=== PATIENT | male | born 1955 | race Caucasian/White ===

== ENCOUNTER 2017-10-08 17:51 | Inpatient (IN) | payer OTHER ==
[~2017-10-08] VITALS: Ht 180.3 cm; Wt 96.5 kg
[2017-10-08 18:09] LABS: BASOPHIL (%) 0.4 % (0-1); BASOPHIL COUNT 0.1 K/uL (0-0.1); EOSINOPHIL (%) 0.2 % (0-5); HEMATOCRIT 45.8 % (38.0-50.0); HEMOGLOBIN 15.9 G/DL (12.5-16.6); IMMATURE GRANULOCYTE (%) 0.3 % (0.0-0.7); LYMPHOCYTE (%) 10.6 % (15-42); LYMPHOCYTE COUNT 1.5 K/uL (1.0-2.8); MCH 29.4 PG (29.0-34.0); MCHC 34.7 G/DL (30.0-36.0); MCV 84.7 FL (86-99); MONOCYTE (%) 4.7 % (3-12); MONOCYTE COUNT 0.7 K/uL (0-0.8); NEUTROPHIL (%) 83.8 % (45-76); NEUTROPHIL COUNT 11.5 K/uL (1.8-6.4); PLATELET COUNT 294 K/uL (156-360); RBC DIS.WIDTH-CV 12.3 % (11.8-14.6); RBC DIS.WIDTH-SD 37.4 % (39-53); RED BLOOD COUNT 5.41 M/uL (4.00-5.50); WHITE BLOOD COUNT 13.8 K/uL (4.1-10.2)
[2017-10-08 18:17] LABS: PTT 26.5 SEC (25-37)
[2017-10-08 18:20] LABS: AMYLASE 31 IU/L (1-118); CHLORIDE 105 mEq/L (99-109); POTASSIUM 5.4 mEq/L (3.7-5.4); SODIUM 139 mEq/L (136-147)
[2017-10-08 18:22] LABS: GLUCOSE 175 mg/dL (70-99)
[2017-10-08 18:25] LABS: SERUM ETHYL ALCOHOL < 10 mg/dL
[2017-10-08 18:26] LABS: CREATININE 1.1 mg/dL (0.6-1.3); GFR ESTIMATE (CALCULATED) > 59 mL/min/ (58.99-99999)
[2017-10-08 18:27] LABS: UREA NITROGEN (BUN) 17 mg/dL (9-23)
[2017-10-08 18:29] LABS: LIPASE 23 U/L (1.0-51.0)
[2017-10-08 18:35] LABS: TROP-I INTERPRETATION POSITIVE
[2017-10-08 18:36] LABS: TROPONIN-I 1.99 ng/mL (0.0-0.30)
[2017-10-08 22:32] VITALS: BP 127/72
[2017-10-09] VITALS (14 sets, daily range): BP systolic 88–140; BP diastolic 68–98
[2017-10-09 02:31] LABS: TROP-I INTERPRETATION POSITIVE
[2017-10-09 02:32] LABS: TROPONIN-I 42.15 ng/mL (0.0-0.30)
[2017-10-09 08:33] LABS: ALBUMIN 3.9 G/DL (3.2-4.8); ALKALINE PHOSPHATASE 31 IU/L (3-129); ALT (GPT) 82 IU/L (3-49); AST (GOT) 496 IU/L (2-34); CHLORIDE 100 MEQ/L (99-109); CREATININE 0.9 MG/DL (0.6-1.3); GFR ESTIMATE (CALCULATED) > 59 mL/min/ (58.99-99999); GLUCOSE 158 mg/dL (70-99); HDL CHOLESTEROL 43 MG/DL (Desirable>=40); LDL CHOLESTEROL 184 mg/dL (Desirable<100); MAGNESIUM 1.7 mg/dl (1.3-2.7); NON-HDL CHOLESTEROL 201 mg/dL (Desirable<160); SODIUM 136 MEQ/L (136-147); TOTAL BILIRUBIN 1.7 MG/DL (0.0-1.0); TOTAL CHOLESTEROL 244 mg/dL (Desirable<200); TOTAL PROTEIN 6.7 G/DL (6.4-8.3); TRIGLYCERIDES 83 MG/DL (Normal: <150); UREA NITROGEN (BUN) 15 mg/dL (9-23)
[2017-10-09 08:37] LABS: BASOPHIL (%) 0.1 % (0-1); EOSINOPHIL (%) 0 % (0-5); HEMATOCRIT 46.8 % (38.0-50.0); HEMOGLOBIN 16.1 G/DL (12.5-16.6); IMMATURE GRANULOCYTE (%) 0.5 % (0.0-0.7); LYMPHOCYTE (%) 5.9 % (15-42); LYMPHOCYTE COUNT 1.1 K/uL (1.0-2.8); MCHC 34.4 G/DL (30.0-36.0); MCV 84.3 FL (86-99); MONOCYTE (%) 6.5 % (3-12); MONOCYTE COUNT 1.2 K/uL (0-0.8); NEUTROPHIL COUNT 16.1 K/uL (1.8-6.4); PLATELET COUNT 281 K/uL (156-360); RBC DIS.WIDTH-CV 12.5 % (11.8-14.6); RBC DIS.WIDTH-SD 38.1 % (39-53); RED BLOOD COUNT 5.55 M/uL (4.00-5.50); WHITE BLOOD COUNT 18.5 K/uL (4.1-10.2)
[2017-10-09 08:45] LABS: TROP-I INTERPRETATION POSITIVE
[2017-10-09 16:08] LABS: TROP-I INTERPRETATION POSITIVE; TROPONIN-I 141.78 ng/mL (0.0-0.30)
[2017-10-10 03:36] VITALS: BP 107/65
[2017-10-10 05:48] LABS: HEMATOCRIT 42.4 % (38.0-50.0); HEMOGLOBIN 14.6 G/DL (12.5-16.6); MCH 29.2 PG (29.0-34.0); MCHC 34.4 G/DL (30.0-36.0); MCV 84.8 FL (86-99); PLATELET COUNT 208 K/uL (156-360); RBC DIS.WIDTH-CV 12.7 % (11.8-14.6); WHITE BLOOD COUNT 14.2 K/uL (4.1-10.2)
[2017-10-10 06:22] LABS: ALBUMIN 3.5 G/DL (3.2-4.8); ALKALINE PHOSPHATASE 31 IU/L (3-129); ALT (GPT) 59 IU/L (3-49); AST (GOT) 225 IU/L (2-34); CHLORIDE 100 MEQ/L (99-109); CREATININE 0.9 MG/DL (0.6-1.3); GFR ESTIMATE (CALCULATED) > 59 mL/min/ (58.99-99999); GLUCOSE 124 mg/dL (70-99); POTASSIUM 3.8 MEQ/L (3.7-5.4); SODIUM 135 MEQ/L (136-147); TOTAL BILIRUBIN 2.2 MG/DL (0.0-1.0); TOTAL PROTEIN 5.9 G/DL (6.4-8.3); UREA NITROGEN (BUN) 14 mg/dL (9-23)
[2017-10-10 07:45] VITALS: BP 101/66
[2017-10-10 09:24] LABS: HEMOGLOBIN A1c (GLYCOHEMOGLOB) 5.8 % (Below 5.7)
[2017-10-10 12:53] VITALS: BP 105/63
[2017-10-10 15:25] VITALS: BP 99/55
[2017-10-10 19:47] VITALS: BP 106/73
[2017-10-10 23:48] VITALS: BP 102/69
[2017-10-11 04:24] VITALS: BP 103/70
[2017-10-11 05:35] LABS: BASOPHIL (%) 0.2 % (0-1); EOSINOPHIL (%) 0.2 % (0-5); HEMATOCRIT 39.4 % (38.0-50.0); HEMOGLOBIN 13.6 G/DL (12.5-16.6); IMMATURE GRANULOCYTE (%) 0.3 % (0.0-0.7); LYMPHOCYTE (%) 15.2 % (15-42); LYMPHOCYTE COUNT 1.6 K/uL (1.0-2.8); MCH 29.8 PG (29.0-34.0); MCHC 34.5 G/DL (30.0-36.0); MCV 86.2 FL (86-99); MONOCYTE (%) 11.8 % (3-12); MONOCYTE COUNT 1.3 K/uL (0-0.8); NEUTROPHIL (%) 72.3 % (45-76); NEUTROPHIL COUNT 7.7 K/uL (1.8-6.4); PLATELET COUNT 169 K/uL (156-360); RBC DIS.WIDTH-CV 12.6 % (11.8-14.6); RBC DIS.WIDTH-SD 39.2 % (39-53); RED BLOOD COUNT 4.57 M/uL (4.00-5.50); WHITE BLOOD COUNT 10.7 K/uL (4.1-10.2)
[2017-10-11 09:04] VITALS: BP 114/67
[2017-10-11 12:59] LABS: CHLORIDE 98 MEQ/L (99-109); CREATININE 0.9 MG/DL (0.6-1.3); GFR ESTIMATE (CALCULATED) > 59 mL/min/ (58.99-99999); GLUCOSE 112 mg/dL (70-99); POTASSIUM 3.7 MEQ/L (3.7-5.4); SODIUM 130 MEQ/L (136-147); UREA NITROGEN (BUN) 17 mg/dL (9-23)
[2017-10-11 13:10] VITALS: BP 104/64
[2017-10-11 20:40] VITALS: BP 112/85
[2017-10-11 23:41] VITALS: BP 105/66
[2017-10-12 04:00] VITALS: BP 107/75
[2017-10-12 07:17] LABS: CHLORIDE 99 MEQ/L (99-109); CREATININE 1.1 MG/DL (0.6-1.3); GFR ESTIMATE (CALCULATED) > 59 mL/min/ (58.99-99999); GLUCOSE 103 mg/dL (70-99); POTASSIUM 3.7 MEQ/L (3.7-5.4); SODIUM 135 MEQ/L (136-147); UREA NITROGEN (BUN) 21 mg/dL (9-23)
[2017-10-12 09:00] VITALS: BP 107/67
[2017-10-12] MEDS ORDERED: LOPRESSOR25 MG PO (12:05)
[2017-10-12] MEDS ORDERED: FUROSEMIDE20 MG PO (12:05)
[2017-10-12] MEDS ORDERED: BRILINTA90 MG PO (12:05)
[2017-10-12] MEDS ORDERED: LISINOPRIL2.5 MG PO (12:05)
[2017-10-12] MEDS ORDERED: ASPIR-LOW81 MG PO (12:05)
[2017-10-12] MEDS ORDERED: FAMOTIDINE20 MG PO (12:05)
[2017-10-12] MEDS ORDERED: ATORVASTATIN CA80 MG PO (12:05)
[2017-10-12 12:21] VITALS: BP 106/65
== END 2017-10-12 16:21 | disposition home health service (06) | DRG 246 ==
LOC: EME 17:51 → 4WEST 19:16 → EDOF 19:16 → 4EAST 19:16 → ENRESERV 19:18 → EDOF 20:58 → 4EAST 22:38 → ENRESERV 10-09 03:50 → 4WEST 10-09 05:33 → ENRESERV 10-09 20:42 → 4EAST 10-09 22:15
PROVIDERS: Emergency Medicine; Internal Medicine; Internal Medicine Cardiovascular Disease; Physician Assistant Medical
DX: I21.4 Non-ST elevation (NSTEMI) myocardial infarction (principal); I25.10 Atherosclerotic heart disease of native coronary artery without angina pectoris; I50.23 Acute on chronic systolic (congestive) heart failure; R73.9 Hyperglycemia, unspecified; E87.1 Hypo-osmolality and hyponatremia; I25.5 Ischemic cardiomyopathy; E78.5 Hyperlipidemia, unspecified; E66.3 Overweight; Z68.30 Body mass index [BMI] 30.0-30.9, adult; Z82.49 Family history of ischemic heart disease and other diseases of the circulatory system
CPT/HCPCS: 71045; 71046; 80048; 80053; 80061; 80306 90; 81003; 82150; 82948; 83036; 83690; 83735; 83880; 84484; 85025; 85027; 85347; 85610; 85730; 86850; 86900; 86901; 87641; 90686; 93005; 93306; 99281; 99285; C1725; C1769; C1874; C1887; G0480; J0153; J1644; J1815; J1940; J2060; J2250; J2270; J2405; J3010; J3246; J7030

== ENCOUNTER → 2018-01-04 | Outpatient (CLI) | payer OTHER ==
[~2018-01-04] MED LIST: ASPIR-LOW81 MG PO; ATORVASTATIN CA80 MG PO; BRILINTA90 MG PO; FAMOTIDINE20 MG PO; FUROSEMIDE20 MG PO; LISINOPRIL2.5 MG PO; LOPRESSOR25 MG PO
== END | disposition home or self-care (01) ==
LOC: NUC 12:15
DX: R94.39 Abnormal result of other cardiovascular function study (principal); Z98.890 Other specified postprocedural states; Z82.49 Family history of ischemic heart disease and other diseases of the circulatory system
CPT/HCPCS: 78472; A9512; A9560; J1644